=== PATIENT | male | born 2000 | race Caucasian/White ===

== ENCOUNTER 2019-02-21 17:22 | Emergency (ER) | payer OTHER, BC ==
--- NOTE | 2019-02-21 18:02 | EDM.PDOC ---
Scribed by Sherry Chiu 02/21/19 1983 for Jami Estrada NP ED HPI GENERAL MEDICAL PROBLEM - General Chief Complaint: Head Injury Stated Complaint: HIT HEAD AT WORK [id number] Time Seen by Provider: 02/21/19 17:33 Source of Information: Reports: Patient, RN, RN Notes Reviewed History Limitations: Reports: No Limitations - History of Present Illness INITIAL COMMENTS - FREE TEXT/NARRATIVE: Patient presents to ER with complaint of pain to the right worship. States he hit his right worship with a steel bar while opening a rail car. Denies loss fo consciousness. States he has a headache /. Admits to ringing in the ears, but has a history fo tinnitus. He states he began to feel sluggish a while after the incident happened. incident occurred at 4 p.m. Denies visual disturbance, nausea or vomiting. Has never previously had a concussion or head injury. Onset: Today Duration: Constant Location: Reports: Head Quality: Reports: Ache Severity: Moderate Improves with: Reports: None Worsens with: Reports: None Associated Symptoms: Reports: No Other Symptoms - Related Data Allergies Allergy/AdvReac Type Severity Reaction Status Date / Time No Known Allergies Allergy Verified 02/21/19 17:32 Home Meds: Home Meds Budesonide/Formoterol [Symbicort 160-4.5 MCG] 1 puff INH BID 02/21/19 [History] Fluticasone Propionate [Flonase] 1 spray NASBOTH DAILY 02/21/19 [History] ED ROS GENERAL - Review of Systems Review Of Systems: ROS reveals no pertinent complaints other than HPI. ED EXAM, HEAD INJURY - Physical Exam Exam: See Below Exam Limited By: No Limitations General Appearance: Alert, WD/WN, No Apparent Distress Head: Atraumatic, Normocephalic Eyes: Bilateral Eye: EOMI, Normal Inspection, PERRL Ears: Normal External Exam, Normal Canal, Hearing Grossly Normal, Normal TMs Nose: Normal Inspection, Normal Mucousa, No Blood Throat/Mouth: Normal Inspection, Normal Lips, Normal Teeth, Normal Gums, Normal Oropharynx, Normal Voice, No Airway Compromise Neck: Non-Tender, Full Range of Motion, Normal Alignment, Normal Inspection Respiratory: No Respiratory Distress, Lungs Clear, Normal Breath Sounds, No Accessory Muscle Use, Chest Non-Tender Cardiovascular: Normal Peripheral Pulses, Regular Rate, Rhythm, No Edema, No Gallop, No JVD, No Murmur, No Rub GI/Abdominal Exam: Normal Bowel Sounds, Soft, Non-Tender, No Organomegaly, No Distention, No Abnormal Bruit, No Mass (Male) Exam: Deferred Rectal (Males) Exam: Deferred Back Exam: Full Range of Motion, Normal Inspection, NT Extremities: Normal Inspection, Normal Range of Motion, Non-Tender, No Pedal Edema, Normal Capillary Refill 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 Ventricles: Normal. No ventriculomegaly. Bones/joints: Unremarkable. No acute fracture. Sinuses: Air-fluid levels present within the maxillary sinuses bilaterally. Remaining sinuses are clear. Mastoid air cells: Visualized mastoid air cells are well aerated. No mastoid effusion. Soft tissues: Unremarkable. IMPRESSION: 1. No hemorrhage, mass effect or midline shift. 2. Air-fluid levels present within the maxillary sinuses bilaterally. See rad report Departure - Departure Time of Disposition: 18:00 Disposition: Home, Self-Care 01 Condition: Fair Clinical Impression: Concussion with no loss of consciousness - Discharge Information *PRESCRIPTION DRUG MONITORING PROGRAM REVIEWED*: No *COPY OF PRESCRIPTION DRUG MONITORING REPORT IN PATIENT OVIDIO: No Instructions: Concussion, Adult, [id number], Head Injury, Adult, [id number] , Post-Concussion Syndrome, [id number] Forms: ED Department Discharge Additional Instructions: May use Tylenol and/or Ibuprofen as directed for pain Drink plenty of fluids Rest in a quiet, dark room Follow up with your primary care facility - My Orders Last 24 Hours: My Active Orders 02/21/19 17:36 Head wo Cont [CT] Stat - Assessment/Plan Last 24 Hours: My Active Orders 02/21/19 17:36 Head wo Cont [CT] Stat I have read and agree with the documentation that has been completed regarding this visit. By signing this record, I attest that the documentation was completed in my physical presence and is an accurate record of the encounter.
== END 2019-02-21 18:07 | disposition home or self-care (01) ==
LOC: DL.ED 17:22
DX: S06.0X0A Concussion without loss of consciousness, initial encounter (principal); W22.8XXA Striking against or struck by other objects, initial encounter; Y99.0 Civilian activity done for income or pay
CPT/HCPCS: 70450; 99283-25